=== PATIENT | female | born 1985 | race Caucasian/White ===

== ENCOUNTER 2017-08-18 16:58 | Emergency (ER) | payer MEDICAID ==
[~2017-08-18] VITALS: Ht 165.1 cm; Wt 71.7 kg
[2017-08-18 17:06] VITALS: Ht 165.1 cm; Wt 71.7 kg
[2017-08-18 19:26] VITALS: BP 139/81
== END 2017-08-18 18:00 | disposition home or self-care (01) ==
LOC: ED 16:58
DX: M22.01 Recurrent dislocation of patella, right knee (principal)